=== PATIENT | female | born 1970 | race Caucasian/White ===

== ENCOUNTER 2024-07-30 06:47 | Outpatient (CLI) | payer MEDICAID, SELFPAY ==
[2024-07-30 06:58] LABS: Adenovirus F 40/41, stool Not Detected (NotDetected); Astrovirus Not Detected (NotDetected); Cryptosporidium Not Detected (NotDetected); Cyclospora Cayetanesis Not Detected (NotDetected); Entamoeba histolytica Not Detected (NotDetected); Enteroaggregative E coli Not Detected (NotDetected); Enteropathogenic E coli Not Detected (NotDetected); Enterotoxigenic E coli Not Detected (NotDetected); Giardia lamblia Not Detected (NotDetected); Norovirus Not Detected (NotDetected); Plesimonas Shigalloides, PCR Not Detected (NotDetected); Rotavirus A Not Detected (NotDetected); Salmonella, PCR Not Detected (NotDetected); Sapovirus Not Detected (NotDetected); Shiga-like toxin E coli Not Detected (NotDetected); Shigella Enterovasive E coli Not Detected (NotDetected); Vibrio Cholerae Not Detected (NotDetected); Vibrio, PCR Not Detected (NotDetected); Yersinia Entercolitica, PCR Not Detected (NotDetected)
--- NOTE | 2024-07-30 07:07 | US_ITS ---
FINAL REPORT CLINICAL HISTORY: CONSTANT DIARRHEA-- FINDINGS: ULTRASOUND RIGHT UPPER QUADRANT Sonographic imaging of the right upper quadrant was obtained. The pancreas is partially obscured. There is increased echogenicity in the liver consistent with fatty infiltration. There is no evidence of gallstones. There is no gallbladder wall thickening. There is no biliary ductal dilatation. The common duct is normal at 4 mm. Limited images of the right kidney are unremarkable. IMPRESSION: Fatty liver. Reviewed, Interpreted and Dictated by David Rangel III, MD Transcribed by Merle Up Authenticated and [facility]
--- NOTE | 2024-07-30 07:07 | XR_ITS ---
FINAL REPORT CLINICAL HISTORY: Screening for osteoporosis COMPARISON: None FINDINGS: Using L1-4, the bone mineral density of the spine is 1.005 g/cm2, corresponding to T-score of -0.4, within normal limits. Using the left hip, the bone mineral density of the total hip is 0.966 g/cm2, corresponding to a T-score of 0.2, within normal limits. Using the right hip, the bone mineral density of the femoral neck is 0.793 g/cm2, corresponding to a T-score of -0.5, within normal limits. FRAX not reported because all T-scores at or above -1.0 NOTE: T-score: Standard deviation compared with peak bone mass of young adult mean. *Following the recommendations of the International Society of Bone densitometry, classification of hip BMD is based on the lower of two T-scores; total hip or femoral neck. IMPRESSION: Normal bone mineral density of the lumbar spine and hips. Reviewed, Interpreted and Dictated by Luis Daniel Corona MD Transcribed by Emmie Timmons Authenticated and [facility]
[2024-07-30 07:10] LABS: Basophils # 0.1 K/mm3 (0-0.2); Basophils % 0.8 % (0.1-2.0); Eosinophils # 0.2 K/mm3 (0.0-0.4); Eosinophils % 2.9 % (0.1-12.0); Hematocrit 39.4 % (37.0-47.0); Hemoglobin 13.2 g/dL (12.2-16.2); Lymphocytes # 2.2 K/mm3 (0.7-4.5); Lymphocytes % 33.1 % (10-50); Mean Corpuscular HGB Conc 33.4 g/dL (31.8-35.4); Mean Corpuscular Hemoglobin 27.5 pg (27.0-31.2); Mean Corpuscular Volume 82.3 fl (81-99); Mean Platelet Volume 7.5 fl (7.4-10.4); Monocytes # 0.4 K/mm3 (0.1-1.0); Neutrophils # 3.8 K/mm3 (1.8-7.8); Neutrophils % 57.2 % (37.0-80.0); Platelet Count 231 K/mm3 (142-424); Red Blood Count 4.79 M/mm3 (4.20-5.40); Red Cell Distribution Width 14.4 % (11.5-17.5); White Blood Count 6.6 K/mm3 (4.8-10.8)
--- NOTE | 2024-07-30 07:11 | CA_ITS ---
APPROVED REPORT EXAM: Comprehensive 2D, Doppler, and color-flow Echocardiogram Emergency Room Registered Nurse: Christa Brown RDCS Ht: 5 ft 2 in Wt: 216lbs BSA: 1.98 BP: 134/76 mmHg Indications: MURMUR M-Mode Dimensions RVDd 1.21 cm (0.9-2.6) LA Diam 3.23 cm (1.9-4.0) LVDd 4.84 cm (3.5-5.7) LVDs 2.96 cm (3.5-5.7) IVSd 1.48 cm (0.6-1.1) PWd 1.18 cm (0.6-1.1) EF (Teich) 69.10% FS 38.80% EDV (Teich) 109.60 mL TAPSE 2.71 (<1.7) ESV (Teich) 33.90 mL LV Diastology E Decel Time 287 (160-240 msec) E/A Ratio 1.0 Mitral Valve MV E Max Jan. 82.0 (40-130 cm/s) MV A Velocity 79.0 (40-130 cm/s) E/A Ratio 1.03 MV PHT 84.0 ms Left Ventricle The left ventricle is normal size. The left ventricular systolic function is normal. The left ventricular ejection fraction is within the normal range. There is increased LV wall thickness. There is normal LV segmental wall motion. The left ventricular diastolic function is normal. LVEF is 60%. Right Ventricle The right ventricle is normal size. The right ventricular systolic function is normal. Atria The left atrium size is normal. The right atrium size is normal. There is no Doppler evidence of interatrial shunt. Aortic Valve The aortic valve opens well. There is no aortic valvular stenosis. No aortic regurgitation is present. Mitral Valve The mitral valve is normal in structure. No evidence of mitral valve stenosis. Trace mitral valve regurgitation noted. Tricuspid Valve Tricuspid valve is grossly normal in structure and function. Trace tricuspid regurgitation. There is insufficient TR jet to estimate RVSP. Pulmonic Valve The pulmonary valve is normal in structure. Trace pulmonic regurgitation. Great Vessels The aortic root is normal in size. IVC is normal in size and collapses >50% with inspiration. Pericardium Trivial, anterior pericardial effusion is present. No evidence of chamber collapse. No echo indications of tamponade. Other Information Study Quality: Fair Conclusion Normal biventricular systolic function. No significant valvular stenosis or regurgitation. Trivial, anterior pericardial effusion is present. No echo indications of tamponade. Electronically signed by : Moni Lizama MD 08/09/2024 12:44:04
[2024-07-30 08:06] LABS: Chloride 105 mmol/L (98-107)
[2024-07-30 08:07] LABS: Potassium 4.1 mmoL/L (3.5-5.1); Sodium 141 mmol/L (136-145)
[2024-07-30 08:09] LABS: Blood Urea Nitrogen 6 mg/dl (7-17); Estimated Glomerular Filt Rate 87 ml/min (>60); GFR (African American) 106 ML/MIN (>60)
[2024-07-30 08:10] LABS: Alanine Aminotransferase 24 U/L (12-78); Albumin/Globulin Ratio 1.7 (1.1-1.8); Alkaline Phosphatase 90 U/L (38-126); Anion Gap 13.1 mEq/L (5-15); Aspartate Amino Transferase 32 U/L (14-36); Bilirubin,Total 0.5 mg/dl (0.2-1.3); Calcium 8.7 mg/dl (8.4-10.2); Carbon Dioxide 27 mmol/L (22.0-30.0); Globulin 2.3 g/dL (1.3-3.2); Glucose 145 mg/dl (74-100); Total Protein,Serum 6.3 g/dl (6.3-8.2)
[2024-07-30 08:42] LABS: Hemoglobin A1C 5.7 % (4.0-6.0); Thyroid Stimulating Hormone 3.77 uIU/mL (0.465-4.68)
[2024-07-30 08:46] LABS: Ferritin 34.3 ng/ml (11.1-264)
[2024-07-30 10:16] LABS: Vitamin B12 567 pg/mL (239-931)
[2024-07-30 11:18] LABS: HIV (1&2) Antibody Rapid NONREACTIVE (NONREACTIVE)
[2024-07-30 14:01] LABS: Campylobacter Not Detected (NotDetected); Clostridium Difficile A/B, PCR Not Detected (NotDetected)
[2024-07-31 09:14] LABS: HCV Ab Non Reactive (Non Reactive)
== END 2024-07-30 23:59 | disposition home or self-care (01) ==
LOC: RAD 06:48
PROVIDERS: PCP Nurse Practitioner Family; Visit Provider Nurse Practitioner Family
DX: R01.1 Cardiac murmur, unspecified (principal); R10.11 Right upper quadrant pain; Z78.0 Asymptomatic menopausal state; R19.7 Diarrhea, unspecified; R63.5 Abnormal weight gain; Z68.39 Body mass index [BMI] 39.0-39.9, adult; Z11.4 Encounter for screening for human immunodeficiency virus [HIV]; Z11.59 Encounter for screening for other viral diseases
CPT/HCPCS: 36415; 76705; 77080; 80050; 80053; 82607; 82728; 83036; 84443; 84481; 85025; 86803; 87389; 87506; 93306

== ENCOUNTER 2024-10-08 06:28 | Outpatient (CLI) | payer MEDICAID, SELFPAY | END 2024-10-08 23:59 | disposition home or self-care (01) | LOC: LAB 06:29 | PROVIDERS: PCP Nurse Practitioner Family; Visit Provider Nurse Practitioner Family | DX: R29.818 Other symptoms and signs involving the nervous system (principal) ==

== ENCOUNTER → 2024-10-11 07:20 | Outpatient (CLI) | payer MEDICAID, SELFPAY | LOC: SL 07:20 | PROVIDERS: PCP Nurse Practitioner Family; Visit Provider Nurse Practitioner Family | DX: G47.33 Obstructive sleep apnea (adult) (pediatric) (principal); R29.818 Other symptoms and signs involving the nervous system | CPT/HCPCS: G0399 ==

== ENCOUNTER → 2024-11-15 12:28 | Day surgery (SDC) | payer MEDICAID, SELFPAY ==
[2024-11-15 12:42] VITALS: BP 174/92; PULSE 93; RESP 16; O2SAT 98
--- NOTE | 2024-11-15 13:21 | P.PNANES_ITS ---
[facility] Disclaimer: The information contained in this section may have been updated after the patient was seen, as this information can be updated by other users. Medical History (Updated 11/15/24 @ 12:41 by Valerie West RN) Post-menopausal Social anxiety disorder Major depression Surgical History (Updated 11/15/24 @ 12:41 by Valerie West RN) Tubal ligation status Social History (Updated 11/15/24 @ 12:38 by Valerie West RN) Smoking Status: Current every day smoker tobacco type: e-cigarettes alcohol intake: never substance use type: marijuana current occupational status: unemployed Travel in the last 8 weeks: None Have you lived/traveled outside US in past 30 days?: No Contact w/someone who lives/traveled outside US past 30 days?: No Exposure to someone with infectious disease in past 14 days?: No Do you have a fever (greater than 100.4 F or 38 C)?: No Have you tested positive for COVID-19: No Exposed to someone with COVID-19 in past 14 days?: No Do you have a sore throat?: No Do you have a cough?: No Do you have any weakness?: No Do you have any diarrhea?: No Are you experiencing any unusual bleeding?: No Do you have any muscle aches/pain?: No Do you have any abdominal pain?: No Are you experiencing loss of taste or smell?: No [facility] Anesthesia Checklist Patient Identification Patient Identification: Arm Band, Family and Verbal (Name & ) Structural Data Admitted From: Home Planned Operative Procedure/s: Colonoscopy Consent for Planned Operative Procedure(s) Verified: Yes Verified Documents: Surgical Consent and History and Physical NPO Status Verified Time NPO: 11:45 Chart Verification Results Verified: CBC and BMP Additional verifications Patient : No Anesthesia Reactions: No Cardiovascular Assessment Heart Sounds: S1 & S2 Pulse Rhythm: Irregular Peripheral Edema: No Airway Assessment Mallampati Score:: Class III C-Spine Mobility Assessed: Yes (FROM demonstrated) TMJ Mobility Assessed: Yes Dentition: Good Dentition (Nothing loose per pt.) Neurological Assessment Level of Consciousness: Awake, Alert, Appropriate and Follows Commands Hx Seizures: No Numbness or tingling in extremities: No Anesthesia Plan Anesthesia Risk discussed: Yes Anesthesia Plan: Verified ASA Class: III Anesthesia Type: MAC
--- NOTE | 2024-11-15 14:22 | EXP.HP ---
History of Present Illness *Admission Date: 11/15/24 *Reason for visit:: Initial screening *History of present illness: Mrs. Trejo is a 54-year-old female who is here for initial screening colonoscopy. The examination is deemed medically necessary for screening colonoscopy. The patient has been seen, interviewed and examined prior to the procedure by both myself and the anesthesia provider. [facility] Disclaimer: The information contained in this section may have been updated after the patient was seen, as this information can be updated by other users. Medical History (Updated 11/15/24 @ 14:31 by Ck Arteaga II, MD) Post-menopausal Social anxiety disorder Major depression Surgical History (Updated 11/15/24 @ 12:41 by Valerie West, RN) Tubal ligation status Social History (Updated 11/15/24 @ 12:38 by Valerie West RN) Smoking Status: Current every day smoker tobacco type: e-cigarettes alcohol intake: never substance use type: marijuana current occupational status: unemployed Travel in the last 8 weeks: None Have you lived/traveled outside US in past 30 days?: No Contact w/someone who lives/traveled outside US past 30 days?: No Exposure to someone with infectious disease in past 14 days?: No Do you have a fever (greater than 100.4 F or 38 C)?: No Have you tested positive for COVID-19: No Exposed to someone with COVID-19 in past 14 days?: No Do you have a sore throat?: No Do you have a cough?: No Do you have any weakness?: No Do you have any diarrhea?: No Are you experiencing any unusual bleeding?: No Do you have any muscle aches/pain?: No Do you have any abdominal pain?: No Are you experiencing loss of taste or smell?: No Other Medical History Have you received the Pneumonia Vaccine: No Review of Systems Review of Systems Review of systems (narrative): Negative *Cardiovascular Comments: Negative *Gastrointestinal Comments: Negative *Genitourinary Comments: Negative *Musculoskeletal Comments: Negative *Neurologic Comments: Negative Meds Home Medications and Allergies Home Medications ?Medication ?Instructions ?Recorded ?Confirmed ?Type mometasone 0.1 % topical ointment 1 applic topical HS 2 weeks #45 07/21/24 08/18/24 Rx grams sodium,potassium,mag sulfates 17.5 See Rx Instructions PO .COMPLEX 09/24/24 Rx gram-3.13 gram-1.6 gram oral soln #354 mL (Suprep Bowel Prep Kit) prazosin 1 mg capsule 1 mg PO HS #30 caps 10/01/24 Rx bupropion HCl 100 mg tablet,12 hr 100 mg PO BID 11/15/24 11/15/24 History sustained-release (Wellbutrin SR) mirtazapine 15 mg tablet 7.5 mg PO DAILY 11/15/24 History New Prescriptions to Start Prescriptions: Allergies Allergy/AdvReac Type Severity Reaction Status Date / Time codeine AdvReac itch Verified 11/15/24 12:40 Exam Data for Last 24 hours Vital signs and Labs for Last 24 Hours: Pulse Resp BP Pulse Ox O2 Del Method 93 H 16 174/92 H 98 Room Air 11/15/24 12:42 11/15/24 12:42 11/15/24 12:42 11/15/24 12:42 11/15/24 12:42 *Routine HEENT Exam Head: Present normocephalic Eye: Present EOMI and PERRL ENT: Present mucous membranes moist *Routine Neck Exam Neck: Present supple *Routine Respiratory Exam Respiratory: Present CTA bilaterally *Routine Cardiovascular Exam Cardiovascular: Present RRR *Routine Abdominal Exam Abdominal: Present soft and normoactive bowel sounds; Absent tenderness *Routine Rectal Exam Rectal:: deferred *Routine Genitalia Exam Genitalia:: deferred *Routine Extremities Exam Extremities: Absent cyanosis, clubbing or edema *Routine Skin Exam Skin: Present warm; Absent rash *Routine Neurological Exam Neurological: Present alert and oriented X3 Assessment and Plan *Assessment and plan (1) Screening for colon cancer: Status: Acute Category: Medical Code(s): Z12.11 - Encounter for screening for malignant neoplasm of colon Plan A/P: 1. Screening for colon cancer is the preprocedural diagnosis. The patient will be anesthetized/sedated using MAC sedation. The patient has been seen and examined. Cardiac and lung assessment prior to the examination is stable. Proceed with planned screening colonoscopy
--- NOTE | 2024-11-15 14:31 | HMH.PROCNOTE ---
[facility] Procedure Note Date: 11/15/24 Time: 14:54 Procedure Note:: Colonoscopy Procedure Report: Colonoscopy Endoscopist: Ck Arteaga II, MD Referring physician: JANINA Lizarraga Date of Procedure: November 15, 2024 Equipment: Olympus 190 variable stiffness pediatric colonoscope Sedation: MAC sedation Indication: Mrs. Trejo is a 54-year-old female who is here for initial screening colonoscopy. She reports no abdominal pain, weight loss, change in her bowel habits or rectal bleeding. She reports no family history of colon cancer. She has had loose stools for several years. Procedure: Prior to the procedure, a history and physical exam was performed, and patient's medications and allergies were reviewed. The risks, benefits and alternatives of the sedation and procedure were discussed with the patient. All questions were answered and informed consent was obtained. The patient was brought to the procedure room. Patient identification and proposed procedure were verified by the physician and the nurse. The patient was placed in a left lateral decubitus position and the scope was passed under direct vision. Throughout the procedure, the patient's blood pressure, pulse, and oxygen saturations were monitored continuously. The colonoscopy was accomplished without difficulty. The patient tolerated the procedure well. Findings: On digital rectal examination there was normal rectal tone. There were no external hemorrhoids. The colonoscope was introduced through the anal canal to the rectum and advanced to the cecum. The ileocecal valve and appendiceal orifice were identified. The scope was advanced a short distance into the ileum which appeared grossly normal. The scope was then withdrawn into the colon. The cecum, ascending and transverse colon and mucosa were grossly normal. There were scattered diverticuli throughout the descending and sigmoid colon (LEFT colon). The rectum itself was normal. Upon retroflexion within the rectum there were grade 2 internal hemorrhoids. The preparation was excellent throughout with [place] Preparation Score of 9. The cecal time was 11 minutes. Impression: 1. Left-sided diverticulosis 2. Grade 2 internal hemorrhoids Plan: The patient will not require surveillance colonoscopy again for 10 years by ACS guidelines. I would encourage a fiber bowel regimen on a long-term daily maintenance basis.
[2024-11-15 14:34] VITALS: O2SAT 97
[2024-11-15 14:58] VITALS: BP 157/78; PULSE 101; RESP 18; TEMP 36.3; O2SAT 93
[2024-11-15 15:17] VITALS: BP 153/69; PULSE 98; RESP 20; O2SAT 94
[2024-11-15 15:37] VITALS: BP 137/83; PULSE 88; RESP 18; O2SAT 98
== END | disposition home or self-care (01) ==
PROVIDERS: PCP Nurse Practitioner Family; Visit Provider Internal Medicine Gastroenterology
PROC: 0DJD8ZZ Inspection of Lower Intestinal Tract, Via Natural or Artificial Opening Endoscopic (ICD-10-PCS; CPT 45378; principal; 2024-11-15 14:00)
DX: Z12.11 Encounter for screening for malignant neoplasm of colon (principal); K57.30 Diverticulosis of large intestine without perforation or abscess without bleeding; K64.1 Second degree hemorrhoids
CPT/HCPCS: 45378

== ENCOUNTER 2025-06-07 12:53 | Emergency (ER) | payer SELFPAY ==
[2025-06-07 12:58] VITALS: BP 191/96; PULSE 103; RESP 20; TEMP 36.3; O2SAT 100; BMI 38.4
[2025-06-07 13:01] VITALS: BP 162/97
[2025-06-07 13:06] LABS: Coronavirus 19, PCR Not Detected (NotDetected); Influenza A, PCR Not Detected (NotDetected); Influenza B, PCR Not Detected (NotDetected)
--- NOTE | 2025-06-07 13:07 | ED_ITS ---
<Statement entered by Harley Restrepo MD - 06/07/25 15:59> I consulted the ELIZABETH, and we discussed the complexity of the problems being addressed. I approved the treatment and management plan for this patient's care in the emergency department, thus performing a substantial portion of the medical decision making. Shahab Restrepo MD Discharge Plan Disposition Patient Disposition: Home, Self-Care Condition: Good Prescriptions Prescriptions: No Action phentermine 37.5 mg tablet 37.5 mg PO DAILY PRN Rx Instructions: must administer 30 minutes before or 1-2 hours after breakfast mometasone 0.1 % ointment 1 applic topical HS 14 Days Qty: 45 1RF prazosin 1 mg capsule 1 mg PO HS Qty: 30 0RF bupropion HCl 150 mg tablet extended release 24 hr 150 mg PO ONCE Qty: 30 1RF mirtazapine 15 mg tablet 7.5 mg PO DAILY Rx Instructions: take 1/2 tablet (7.5mg) PO Daily Referrals Follow up/Referrals: Priscilla Hugo APRN [Primary Care Provider, Medical] - See instructions Activity Restrictions/Add. Instructions Additional Instructions/Restrictions: You were evaluated on an emergency basis. It is very important that you follow- up with your primary care provider and any specialist who we discussed within the next 2 days in order to better assess your health more comprehensively. For example, incidental findings on imaging or laboratory results that were performed today may be discovered, which do not require immediate medical care, but may impact your health in the future. If your symptoms worsen or persist, please return to the emergency department immediately for reassessment. Take all medications as prescribed. In queue for allowing me to participate in your health care, and I hope you feel better soon. Clinical Impressions Clinical Impression: Viral upper respiratory illness Instructions Patient Instructions: DI for Viral Upper Respiratory Infection -- Adult Print Language Print Language: Macedonian Discharge ED Provider: Harley Restrepo General Adult HPI General Chief complaint: Upper Respiratory Infection Stated complaint: cough, congestion, sore throat Time Seen by Provider: 06/07/25 13:07 Mode of Arrival: Ambulatory Source of Information: Patient Description of Symptoms (Recalled from ER Triage Doc. by RN): patient presents to the ED for sore throat x3 days and green darinage from nose. no other History of Present Illness HPI narrative: 55-year-old female presents to the emergency department complaints of nasal congestion, generalized malaise with sore throat for the past 3 days. She denies fevers or shortness of breath. She has not take any medication for symptom relief prior to arrival. Related Data Home Medications ?Medication ?Instructions ?Recorded ?Confirmed mirtazapine 15 mg tablet 7.5 mg PO DAILY 01/10/25 phentermine 37.5 mg tablet 37.5 mg PO DAILY PRN Previous Rx's ?Medication ?Instructions ?Recorded mometasone 0.1 % topical ointment 1 applic topical HS 2 weeks #45 07/21/24 grams prazosin 1 mg capsule 1 mg PO HS #30 caps 10/01/24 bupropion HCl 150 mg 24 hr tablet, 150 mg PO ONCE #30 tabs 05/30/25 extended release Allergies Allergy/AdvReac Type Severity Reaction Status Date / Time codeine AdvReac itch Verified 01/10/25 09:19 [facility] Disclaimer: The information contained in this section may have been updated after the patient was seen, as this information can be updated by other users. Medical History (Updated 06/07/25 @ 13:53 by Karol Rodriguez) Post-menopausal Social anxiety disorder Major depression Surgical History Tubal ligation status Social History Smoking Status: Light tobacco smoker tobacco type: e-cigarettes alcohol intake: never substance use type: marijuana current occupational status: unemployed Travel in the last 8 weeks?: None Have you lived/traveled outside US in past 30 days?: No Contact w/someone who lives/traveled outside US past 30 days?: No Exposure to someone with infectious disease in past 14 days?: No Do you have a fever (greater than 100.4 F or 38 C)?: No Have you tested positive for COVID-19?: No Exposed to someone with COVID-19 in past 14 days?: No Do you have a sore throat?: No Do you have a cough?: No Do you have any weakness?: No Do you have any diarrhea?: No Are you experiencing any unusual bleeding?: No Do you have any muscle aches/pain?: No Do you have any abdominal pain?: No Are you experiencing loss of taste or smell?: No Other Medical History Have you received the Pneumonia Vaccine: No ROS Obtained: Yes other Constitutional Constitutional: Reports malaise ENT Ears, Nose, Mouth, and Throat: Reports nasal congestion, Reports nasal discharge and Reports sore throat Physical Exam Narrative Physical exam: General: Awake, aware, in no acute distress HEENT: Normocephalic, no evidence of trauma CV: RRR, no murmurs, rubs, or gallops Pulm: CTA bilaterally with no rhonchi, rales, wheezes ABD: Nontender, no swelling, guarding, or rebound tenderness Psych, appropriate mood and affect General General appearance: alert Respiratory Respiratory exam: Present normal lung sounds bilaterally Cardiovascular Cardiovascular exam: Present regular rate Neurological Exam Neurological exam: Present alert Medical Decision Making Medical Records Screening: Per USPSTF and CDC recommendations, given the prevalence of disease in our region, it is our hospital?s policy to screen for HIV and viral Hepatitis for all patients aged 18 and over and those with ongoing risk factors. Pratik Inquiry Pt receiving controlled substance: No Vital Signs: 06/07/25 12:58 06/07/25 13:01 06/07/25 13:08 Temperature 97.4 F L Temperature Source Temporal Artery Scan Pulse Rate [Right Radial] 103 H Respiratory Rate 20 Blood Pressure 162/97 H Blood Pressure [Right Arm] 191/96 H Blood Pressure Mean [Right Arm] 127 Blood Pressure Source [Right Arm] Automatic Cuff Blood Pressure Position [Right Arm] Sitting 02 Sat by Pulse Oximetry 100 100 Oxygen Delivery Method Room Air Room Air Lab Data Lab Results 06/07/25 12:56: SARS-CoV-2 (PCR) Not detected, Influenza A Untype (PCR) Not detected, Influenza Type B (PCR) Not detected, Group A Strep Rapid Negative Orders (Tests/Meds): ED MEDICATIONS Discontinued Medications Generic Name Dose Route Start Last Admin Trade Name Freq PRN Reason Stop Dose Admin Ibuprofen 800 mg 06/07/25 13:18 06/07/25 13:27 Ibuprofen 800 Mg Tablet PO 06/07/25 13:19 800 mg ONCE ONE Administration ORDERS Category Date Time Status Rapid PCR Covid and Flu A/B Stat Lab 06/07/25 12:56 Completed Strep Scrn Group A (Rapid) Stat Lab 06/07/25 12:56 Completed Strep Screen Confirmation Stat Micro 06/07/25 12:56 Received Medical Decision Narrative: Initial impression of presenting illness: 55-year-old female presents emergency department with complaints of nasal congestion and drainage, generalized malaise, sore throat for the past 3 days. She denies fevers or shortness of breath. She states she has not take any medication for symptom relief prior to arrival. Differential diagnosis includes but is not limited to: Strep throat, viral illness, allergic rhinitis Patient arrives hemodynamically stable, afebrile, without respiratory distress with vital signs interpreted by myself. Initial physical exam unremarkable Initial diagnostic plan: COVID and flu swab, rapid strep, ibuprofen for pain c ontrol Results from initial plan were reviewed and interpreted by myself, pertinent positives include: Rapid strep test was negative as well as COVID and flu swabs. Interventions in the ED: Patient was given ibuprofen for pain control Patient was made aware of the results and the findings, upon reevaluation patient has remained stable throughout stay, symptoms remained stable. Upon reevaluation patient is resting comfortably in her room with no signs of acute distress Disposition: Reviewed findings today's workup with patient informed no acute abnormalities were noted. advised her that her symptoms likely related to a viral upper respiratory infection. I reviewed symptomatic treatment with patient including increase fluids and rest for the next several days as well as Tylenol ibuprofen as needed for pain and fever control. She may also use [id number] decongestants such as Mucinex D help with her sinus congestion and relief of symptoms. Instructed her to return to the emergency department with any new or worsening symptoms including uncontrolled fevers or shortness of breath. Patient is agreeable to plan of care. Patient made aware of findings and had a detailed discussion with symptomatic care and return precautions, patient voiced understanding. Critical Care Critical Care Time Critical Care Time: No
[2025-06-07 13:08] VITALS: O2SAT 100
[2025-06-07 13:20] LABS: Strep Scrn Group A (Rapid) Negative (Negative)
[2025-06-07] MEDS: IBUPROFEN 800 MG TABLET PO (13:27)
[2025-06-07 14:03] VITALS: BP 162/97; PULSE 96; RESP 20; TEMP 36.3; O2SAT 100
== END 2025-06-07 14:04 | disposition home or self-care (01) ==
PROVIDERS: Emergency Provider Student in an Organized Health Care Education/Training Program; PCP Nurse Practitioner Family
DX: R07.0 Pain in throat (principal); R09.81 Nasal congestion; J06.9 Acute upper respiratory infection, unspecified; F17.290 Nicotine dependence, other tobacco product, uncomplicated
CPT/HCPCS: 87430; 87636; 99283